=== PATIENT | female | born 1980 | race Caucasian/White ===

== ENCOUNTER 2017-03-03 17:45 | Outpatient (CLI) ==
[2016-02-18 17:29] VITALS: BMI 19.1
[2017-03-03 18:04] LABS: FLU INTERNAL QC INTERNAL QC VALID; RAPID FLU A NEGATIVE (NEGATIVE); RAPID FLU B NEGATIVE (NEGATIVE)
== END 2017-03-03 17:46 | disposition home or self-care (01) ==
LOC: LAB 17:45
PROVIDERS: ATTEND Nurse Practitioner Family
DX: J02.9 Acute pharyngitis, unspecified (principal)
CPT/HCPCS: 87651; 87804; 87880

== ENCOUNTER 2018-04-09 07:28 | Outpatient (CLI) ==
[2016-02-18 17:29] VITALS: BMI 19.1
== END 2018-04-09 07:29 | disposition home or self-care (01) ==
LOC: RHC-LAB 07:28
PROVIDERS: ATTEND Emergency Medicine
DX: J06.9 Acute upper respiratory infection, unspecified (principal)
CPT/HCPCS: 87651